=== PATIENT | female | born 1985 | race African-American/Black ===

== ENCOUNTER 2020-03-16 10:22 | Emergency (ER) | payer SELFPAY ==
[2020-03-16 10:31] VITALS: BP 117/74
--- NOTE | 2020-03-16 11:44 | ER Document Report ---
HPI - HPI Time Seen by Provider: 03/16/20 11:30 Context: Patient is a 34-year-old female with a history of MS who presents emergency department with multiple complaints. Her first complaint is that she has had purulent drainage to bilateral eyes for the past 3 days. She wakes up and her eyes are glued shut. She also states that she has tooth pain to her right upper jaw. Mother states that the patient had a tooth pulled and a piece of tooth was left in that area. Patient also has complaints of back pain. States that it is more of a sore feeling. Patient has been taking ibuprofen and Tylenol without relief of her symptoms. Denies any fever, body aches, or chills. Denies any difficulty swallowing or shortness of breath. - ROS Systems Reviewed and Negative: Yes All other systems reviewed and negative - CONSTITUTIONAL Constitutional: DENIES: Fever, Chills - EENT EENT: REPORTS: Eye problems - Purulent drainage. DENIES: Sore Throat, Nasal Drainage-Clear Notes: Right upper tooth pain - NEURO Neurology: DENIES: Headache, Weakness - RESPIRATORY Respiratory: DENIES: Trouble Breathing, Coughing - GASTROINTESTINAL Gastrointestinal: DENIES: Abdominal Pain, Nausea, Patient vomiting - MUSCULOSKELETAL Musculoskeletal: REPORTS: Back Pain - Bilateral lower. DENIES: Extremity pain, Neck Pain, Swelling - DERM Skin Color: Normal Skin Problems: None Past Medical History - General Information source: Patient, Parent - Social History Smoking Status: Unknown if Ever Smoked Family History: Reviewed & Not Pertinent Vertical Provider Document - CONSTITUTIONAL Agree With Documented VS: Yes Exam Limitations: No Limitations General Appearance: No Apparent Distress - INFECTION CONTROL TRAVEL OUTSIDE OF THE [place] IN LAST 30 DAYS: No - HEENT HEENT: Atraumatic, Conjuctival Injection - Bilateral with purulent drainage, Normocephalic, PERRLA Mouth Diagram: 1 - Tooth decay noted; also noted throughout entire mouth - NECK Neck: Normal Inspection - RESPIRATORY Respiratory: Breath Sounds Normal, No Respiratory Distress - CARDIOVASCULAR Cardiovascular: Regular Rate, Regular Rhythm Pulses: Normal: Radial - BACK Back: Normal Inspection. negative: CVA Tenderness-Right, CVA Tenderness-Left - MUSCULOSKELETAL/EXTREMETIES Musculoskeletal/Extremeties: FROM, Tender - Bilateral lower back - NEURO Level of Consciousness: Awake, Alert, Appropriate Motor/Sensory: No Motor Deficit, No Sensory Deficit - DERM Integumentary: Warm, Dry, No Rash Course - Re-evaluation Re-evalutation: 03/16/20 11:46 Patient's physical exam and history is most consistent with a infected tooth. Patient is able to swallow, no facial swelling noted, airway is patent, vital signs are normal. I do not suspect Carlos's angina, peritonsilar abscess, or airway obstruction. The patient will be started on oral antibiotics. I have given the patient education on their antibiotics. Patient was given instructions to follow-up with a dentist this week. Patient also has bilateral conjunctivitis. We will start her on Polytrim eyedrops. Differential diagnosis for back pain includes muscle spasm, muscle strain, slipped disc cauda equina syndrome, vertebral fracture, vertebral tumor, epidural abscess, pyelonephritis, or AAA. Based on history and exam, the most likely etiology of the patient's back pain is sciatic nerve pain. Emergent MRI is not indicated at this time because the patient does not have new weakness, or cauda equina syndrome. Patient does not have bladder or bowel dysfunction. Patient does not have history of IV drug use, therefore, I do not suspect an epidural abscess. Patient does not have recent weight loss or night sweats, and does not have a known history of cancer. Follow-up precautions were given. Verbal discharge instructions were given to the patient. They verbalized understanding. They are stable for discharge. - Vital Signs Vital signs: Temp Pulse Resp BP Pulse Ox 98.6 F 98 18 117/74 99 03/16/20 10:29 03/16/20 10:29 03/16/20 10:29 03/16/20 10:29 03/16/20 10:29 Discharge - Discharge Clinical Impression: Tooth ache Conjunctivitis Qualifiers: Conjunctivitis type: acute Acute conjunctivitis type: bacterial Laterality: bilateral Qualified Code(s): H10.33 - Unspecified acute conjunctivitis, bilateral Back pain Qualifiers: Back pain location: low back pain Chronicity: acute Condition: Stable Disposition: HOME, SELF-CARE Instructions: Penicillin V K ([facility]), Toothache ([facility]) Additional Instructions: You have been seen in the emergency department for a toothache. You may take Toradol and Tylenol 1000 mg every 6 hours as needed for the pain. Do not take ibuprofen while taking Toradol. You have also been prescribed antibiotics. Please take the antibiotics as prescribed, even if you start to feel better. If you develop a fever greater than 100.4 F, or have any symptoms that are worrisome to you, please return to the emergency department. Please follow-up with a dentist this week in regards to your visit. You also have conjunctivitis. Place eyedrops your eyes as prescribed. Prescriptions: Penicillin V Potassium [Penicillin Vk 500 mg Tablet] 500 mg PO BID #20 tablet Famotidine [Pepcid 20 mg Tablet] 20 mg PO BID #20 tablet Polymyxin B Sulf/Trimethoprim [Polytrim Eye Drops] 1 drop OD Q3H #10 ml Ketorolac Tromethamine [Toradol 10 mg Tablet] 10 mg PO Q6HP PRN #20 tablet PRN Reason: Forms: Parent Work Note
== END 2020-03-16 11:49 | disposition home or self-care (01) ==
LOC: ER 10:22
DX: K08.9 Disorder of teeth and supporting structures, unspecified (principal); H10.33 Unspecified acute conjunctivitis, bilateral; M54.5 Low back pain; G35 Multiple sclerosis
CPT/HCPCS: 99282